=== PATIENT | female | born 1995 | race Caucasian/White ===

== ENCOUNTER → 2024-02-23 09:53 | Outpatient (REF) | payer OTHER, SELFPAY | LOC: RAD 09:53 | PROVIDERS: ATTENDING PHYSICIAN Internal Medicine; FAMILY PHYSICIAN Physician Assistant Medical; REFERRING PHYSICIAN Internal Medicine Rheumatology | DX: R13.19 Other dysphagia (principal) | CPT/HCPCS: 74221 ==

== ENCOUNTER 2024-08-11 20:04 | Emergency (ER) | payer OTHER, SELFPAY ==
--- NOTE | 2024-08-11 20:29 | ED.GENMED ---
History of Present Illness
General
Chief Complaint: Cardiac Symptoms
Time Seen by Provider: 08/11/24 20:29
History of Present Illness
History of Present Illness:
TIME OF INITIAL ENCOUNTER: 8:30 PM
HPI: Patient presents with multiple complaints and concerns. She has been having intermittent stabbing sensation in the chest. At times it felt more like a diffuse pain as well. She does not necessarily have any shortness of breath but does
report being on a Mirena. She was concerned because her Raynaud's has been worsening recently. She has a history of pneumomediastinum related to vomiting from food poisoning when she was at [employer]. When she was washing dishes today, she had
left upper extremity paresthesias. She has had intermittent episodes of twitching of the muscles to various parts of her body.
EXAM:
GENERAL: Well appearing in no distress
HEENT: Moist oral mucosa
CARDIOVASCULAR: No murmurs, tachycardic heart rate, regular rhythm, No chest wall tenderness
PULMONARY: No respiratory distress, breath sounds are clear and equal
ABDOMEN: Soft with no peritoneal signs, no tenderness
NEUROLOGIC: Excellent strength all extremities, no coordination deficits
PSYCHIATRIC: Appropriate mental status, normal insight and judgement, appears somewhat anxious
EXTREMITIES: Nontender, no edema, moves all extremities equally
SKIN: No rash, no lesions
NUMBER AND COMPLEXITY OF PROBLEMS ADDRESSED AT THE ENCOUNTER
� Chronic conditions affecting care: Donnaud's, has had pneumomediastinum in the past
� Acute Exacerbation and/or Progression of Chronic Illness: This is an acute problem
� Differential Diagnosis includes: Anxiety, dehydration, PE less likely, ACS very unlikely, recurrence of pneumomediastinum, pneumothorax, chest wall pain
AMOUNT AND/OR COMPLEXITY OF DATA TO BE REVIEWED AND ANALYZED
� I performed an independent evaluation of and my interpretation is:
EKG: Sinus 125, nonspecific ST abnormality likely rate related
CT:
X-rays:
Laboratory Studies: White count and hemoglobin are normal, troponin 0.026, D-dimer less than 0.27
Other:
� Review of other/old records: I reviewed records, the patient had a colonoscopy in 2022
� Clinical information was obtained by an independent historian: I spoke to her friend at bedside
� Prescriptions/Medications Considered but not given:
� Further testing considered but not performed: Consider chest x-ray however patient's symptoms are improving just with Ativan and her repeat lung exam is entirely clear
RISK OF COMPLICATIONS AND/OR MORBIDITY OR MORTALITY OF PATIENT MANAGEMENT
� Social determinants of health affecting care: Lives at home
� Discussion with other providers:
� Escalation of care including admission/observation vs risk of discharge considered: The patient states that she got a ride here and can Uber back home. Will give low-dose Ativan as well as fluids.
ANY OTHER UPDATES:
10:20 PM: I reassessed patient. Heart rate is now in the 80s. I suspect more of a anxiety component. She feels much improved after Ativan/saline given. Symptoms have essentially resolved prior to discharge. EKG was repeated as there was some ST
abnormality which was likely rate related. EKG #2 sinus 74, no acute ST abnormality, normal axis.
Past History
Past History
ED Past Medical History: None
ED Past Surgical History: None
Social History
Tobacco: Non-smoker
Alcohol: None
Drug: None
Phy Exam
Physical Exam
Physical Exam:
See HPI
Course
Orders/Labs/Results
Orders:
Orders
08/11/24 20:05
Electrocardiogram (*1) Urgent
Reason for Study: Chest Pain
EKG- Treatment ONCE
08/11/24 20:38
0.9% Sodium Chloride 1000 ml [Nss] 1,000 ml IV BOLUS
Lorazepam [Ativan] 0.5 mg IV NOW STA
08/11/24 20:48
Complete Blood Count/With Diff Urgent
D-Dimer Urgent
Troponin I Urgent
08/11/24 21:25
Comprehensive Metabolic Panel Urgent
08/11/24 22:27
Electrocardiogram (*1) Urgent
Reason for Study: Abnormal EKG
EKG- Treatment ONCE
08/11/24 22:42
Potassium Chloride [KCl] 40 meq PO NOW STA
Abnormal Lab Results
08/11/24
21:25
Potassium 3.3 L mmol/L
(3.5-5.1)
Total Protein 6.1 L g/dl
(6.3-8.2)
08/11/24 20:48
08/11/24 21:25
Vital Signs
Initial and Last Documented VS:
Initial Vital Signs
Temp Pulse Resp BP Pulse Ox
36.6 C 122 16 164/108 100
08/11/24 20:07 08/11/24 20:07 08/11/24 20:07 08/11/24 20:07 08/11/24 20:07
Last Documented Vital Signs
Temp Pulse Resp BP Pulse Ox
36.6 C 78 10 107/66 97
08/11/24 20:07 08/11/24 22:45 08/11/24 22:30 08/11/24 22:35 08/11/24 22:45
*Critical Care Note
Total Time (30-74mins, 75-104mins- exclusive of procedures): Not Applicable
ED Attending Note
-
Portions of this chart may have been created with voice recognition software.� Occasional wrong word or��sound alike� substitutions may have occurred due to the inherent limitations of voice recognition software.
Discharge Plan
Departure
Patient Disposition: Home (Routine Discharge)
Date of Disposition: 08/11/24
Time of Disposition: 22:41
Patient with high blood pressure during this ER visit?: Yes
Discharge Problem:
Paresthesias
Instructions: Hand Numbness, BLOOD PRESSURE
Referrals:
Nelia Merritt PA [Family Provider] -
Activity Restrictions/Additional Instructions:
The cause of your symptoms is unclear but may be related to a degree of anxiety. Complete blood cell counts are normal, chemistry levels are normal with exception of slightly low potassium at 3.3. Cardiac blood work shows no sign of heart attack
and there is no sign of blood clot in your lung.
Interventions
Interventions:
*Risk Screen - Suicide Last Done: 08/11/24 20:07
*General Assessment Last Done: 08/11/24 20:07
*Neglect/Abuse Screening Last Done: 08/11/24 20:07
*ED- Fall Risk Assessment Last Done: 08/11/24 22:07
*ED COVID-19 Vaccine History Last Done: 08/11/24 22:07
*Nursing Disposition Last Done: 08/11/24 22:51
ED- Cardiac Assessment Last Done: 08/11/24 22:12
ED- Pulmonary Assessment Last Done: 08/11/24 22:12
Discharge Date and Time
Discharge Date/Time: 08/11/24 22:56
Print Language: SPANISH
[2024-08-11] MEDS: NSS 1000 IV (20:54)
[2024-08-11] MEDS: ATIVAN 0.5 MG IV (20:54)
[2024-08-11 20:56] LABS: % Basophils 0.5 % (0-2); % Eosinophils 1.4 % (0-6); % Immature Granulocytes 0.2 % (0-0.5); % Lymphocytes 44.4 % (20.5-51.1); % Monocytes 6.7 % (1.7-9.3); % Neutrophils 46.8 % (42.2-75.2); Absolute Eosinophils 0.1 10^3/uL (0-0.7); Absolute Lymphocytes 2.8 10^3/uL (1.2-3.4); Absolute Monocytes 0.4 10^3/uL (0.1-0.6); Absolute Neutrophils 2.9 10^3/uL (1.4-6.5); Hemoglobin 13.8 g/dL (12.0-16.0); Mean Corp Hgb Conc. 36.3 g/dL (33.0-37.0); Mean Corpuscular Hgb 30.2 pg (27.0-31.0); Mean Corpuscular Volume 83.2 fL (81.0-99.0); Mean Platelet Volume 8.4 fL (7.4-10.4); Nucleated Red Blood Cells % 0 %; Platelet Count 244 10^3/uL (130-400); Red Blood Cell Count 4.57 10^6/uL (4.20-5.40); Red Cell Dist. Width 12.4 % (11.5-14.5); White Blood Cell Count 6.3 10^3/uL (4.8-10.8)
[2024-08-11 21:25] LABS: D-Dimer < 0.27 ug/mlFEU (0.00-0.50); Troponin I 0.026 ng/ml
[2024-08-11 21:48] LABS: ALT (SGPT) 19 U/L (0-35); AST (SGOT) 24 U/L (14-36); Albumin 3.8 g/dl (3.5-5.0); Alkaline Phosphatase 39 U/L (38-126); Blood Urea Nitrogen 7 mg/dl (7-17); Carbon Dioxide 27 mmol/L (22-30); Chloride 107 mmol/L (98-107); Estimated Creatinine Clearance 95 ml/min; Glucose 91 mg/dl (70-99); Potassium 3.3 mmol/L (3.5-5.1); Sodium 139 mmol/L (135-145); Total Bilirubin 0.5 mg/dl (0.2-1.3); Total Protein 6.1 g/dl (6.3-8.2); eGFR > 60.00
[2024-08-11] MEDS: KCL 40 MEQ PO (22:48)
== END 2024-08-11 22:56 | disposition home or self-care (01) ==
LOC: EMR 20:04
PROVIDERS: Emergency Medicine; EMERGENCY PHYSICIAN Emergency Medicine; FAMILY PHYSICIAN Physician Assistant Medical
DX: R20.2 Paresthesia of skin (principal); I73.00 Raynaud's syndrome without gangrene
CPT/HCPCS: 99283; 80053; 84484; 85025; 85379; 93005